=== PATIENT | female | born 1995 | race Caucasian/White ===

== ENCOUNTER 2023-10-14 06:36 | Day surgery (SDC) | payer BC ==
[2023-10-14] MEDS ORDERED: Morphine 4 MG/ML Syringe IVPUSH ONE (08:56)
[2023-10-14] MEDS ORDERED: Prochlorperazine 10 MG/2 ML SDV IVPUSH ONE (09:10)
[2023-10-14] MEDS ORDERED: Ampicillin/Sulbactam Na 3 GM in Sodium Chloride 0.9% 100 ML IV SCH (10:00)
[2023-10-14] MEDS ORDERED: Propofol 200 MG/20 ML SDV ONE (10:23)
[2023-10-14] MEDS ORDERED: Succinylcholine 200 MG/10 ML MDV ONE (10:23)
[2023-10-14] MEDS ORDERED: Lidocaine 1% 8 ML ONE (10:23)
[2023-10-14] MEDS ORDERED: Midazolam 1 MG/ML 2 ML SDV ONE (10:23)
[2023-10-14] MEDS ORDERED: fentaNYL 250 MCG/5 ML SDV ONE (10:23)
[2023-10-14] MEDS ORDERED: Ketorolac 30 MG/ML SDV ONE (10:24)
[2023-10-14] MEDS ORDERED: Rocuronium 50 MG/5 ML Vial ONE (10:24)
[2023-10-14] MEDS ORDERED: Metoclopramide 10 MG/2 ML SDV ONE (10:24)
[2023-10-14] MEDS ORDERED: Ondansetron 4 MG/2 ML SDV ONE (10:24)
[2023-10-14] MEDS ORDERED: Lidocaine 1% 30 ML SDV ONE (10:36)
[2023-10-14] MEDS ORDERED: EPINEPHrine 1 MG/ML SDV ONE (10:36)
[2023-10-14] MEDS ORDERED: Lactated Ringers 1,000 ML ONE ×2 (11:12→12:47)
[2023-10-14] MEDS ORDERED: Ampicillin/Sulbactam 3 GM Vial ONE (11:15)
[2023-10-14] MEDS ORDERED: Sodium Chloride 0.9% 100 ML ONE (11:16)
[2023-10-14] MEDS ORDERED: fentaNYL 100 MCG/2 ML SDV IVPUSH PRN (12:30)
[2023-10-14] MEDS ORDERED: HYDROmorphone 0.5 MG/0.5 ML Syringe IVPUSH PRN (12:30)
[2023-10-14] MEDS ORDERED: Sugammadex Sodium 200 MG/2 ML VIAL ONE (12:41)
[2023-10-14] MEDS ORDERED: HYDROmorphone 0.5 MG/0.5 ML Syringe ONE (12:44)
[2023-10-14] MEDS ORDERED: Acetaminophen/HYDROcodone 325-5 MG Tab PO ONE (14:33)
[2023-10-14] MEDS ORDERED: Prochlorperazine 10 MG/2 ML SDV IVPUSH PRN (15:01)
== END 2023-10-14 15:20 | disposition home or self-care (01) ==
LOC: JD.ED 06:36 → JD.SDS 09:50
PROVIDERS: ATTEND Student in an Organized Health Care Education/Training Program
DX: K35.80 Unspecified acute appendicitis (principal); Z90.89 Acquired absence of other organs; Z79.899 Other long term (current) drug therapy; Z88.7 Allergy status to serum and vaccine
CPT/HCPCS: 44970; A9270; J0171; J0295; J0330; J0780; J1170; J1885; J2250; J2270; J2405; J2704; J2765; J3010; J3490; J7120